=== PATIENT | male | born 1985 | race Caucasian/White ===

== ENCOUNTER 2022-09-06 01:04 | Emergency (ER) | payer MEDICAID ==
[~2022-09-06] VITALS: Ht 175.3 cm; Wt 68.2 kg
[2022-09-06] MEDS ORDERED: proparacaine 0.5% ophthalmic drops 15ml EACHEYE ONE (02:05)
[2022-09-06] MEDS ORDERED: acetaminophen 325mg tablet PO ONE (02:10)
[2022-09-06] MEDS ORDERED: erythromycin ophthalmic ointment 1gm tube RIGHTEYE ONE (02:25)
[2022-09-06] MEDS ORDERED: ERYT1OIN6 LEFTEYE (02:28)
[2022-09-06 02:36] VITALS: BP 115/67
== END 2022-09-06 02:38 | disposition home or self-care (01) ==
LOC: ER 01:05
DX: H57.11 Ocular pain, right eye (principal); H57.89 Other specified disorders of eye and adnexa; Z88.6 Allergy status to analgesic agent; Z79.899 Other long term (current) drug therapy
CPT/HCPCS: 99284

== ENCOUNTER 2023-09-21 03:38 | Emergency (ER) | payer MEDICAID ==
[~2023-09-21] VITALS: Ht 175.3 cm; Wt 78.0 kg
[2023-09-21 03:42] VITALS: BP 95/73; PULSE 65; RESP 18; TEMP 98.8; O2SAT 99
[2023-09-21 04:17] LABS: BASOPHILS % (AUTO) 0.4 % (0-1); EOSINOPHILS # (AUTO) 0.2 X10'3 (0-0.9); EOSINOPHILS % (AUTO) 2.2 % (0-6); HEMATOCRIT 43.7 % (42.0-52.0); HEMOGLOBIN 15.5 g/dl (14.0-17.9); LYMPHOCYTES # (AUTO) 1.9 X10'3 (1.1-4.8); LYMPHOCYTES % (AUTO) 22.5 % (21-51); MEAN CORPUSCULAR HEMOGLOBIN 30.7 PG (27.0-31.0); MEAN CORPUSCULAR HGB CONC 35.4 g/dL (33.0-36.5); MEAN CORPUSCULAR VOLUME 86.7 FL (78-98); MONOCYTES # (AUTO) 0.8 X10'3 (0-0.9); MONOCYTES % (AUTO) 9.6 % (2-12); NEUTROPHILS # (AUTO) 5.4 X10'3 (1.8-7.7); NEUTROPHILS % (AUTO) 65.3 % (42-75); PLATELET COUNT 305 X10'3 (140-440); RED BLOOD COUNT 5.04 X10'6 (4.70-6.10); RED CELL DISTRIBUTION WIDTH 13.1 % (11.5-14.5); WHITE BLOOD COUNT 8.3 X10'3 (4.5-11.0)
[2023-09-21] MEDS: diazepam inj 5 MG/ML inj. IV ONE (04:18)
[2023-09-21] MEDS: mag hydrox/Alum hydrox/simeth 30ml oral suspension PO ONE (04:19)
[2023-09-21] MEDS: LIDOcaine 2% Viscous 15ml cup MM ONE (04:20)
[2023-09-21] MEDS: ondansetron/PF 4mg/2ml inj IV ONE (04:24)
[2023-09-21] MEDS: pantoprazole 40 MG vial IV ONE (04:25)
[2023-09-21] MEDS: normal saline 1000ML IV soln IVB ONE (04:25)
[2023-09-21 04:42] LABS: ALANINE AMINOTRANSFERASE 27 U/L (12-78); ALBUMIN 4.2 G/DL (3.4-5.0); ALBUMIN/GLOBULIN RATIO 1.4 (1.1-1.5); ALKALINE PHOSPHATASE 66 IU/L (46-116); ANION GAP 6 (8-16); ASPARTATE AMINO TRANSFERASE 13 U/L (10-37); BILIRUBIN,TOTAL 0.8 MG/DL (0.1-1.0); BLOOD UREA NITROGEN 14 MG/DL (7-18); BUN/CREATININE RATIO 17.1 (10.0-20.0); CALCIUM 9.6 MG/DL (8.5-10.1); CHLORIDE 102 MMOL/L (99-107); CREATININE 0.82 MG/DL (0.60-1.10); GLUCOSE 109 MG/DL (70-104); POTASSIUM 3.1 MMOL/L (3.5-5.1); SODIUM 137 MMOL/L (135-145); TOTAL CARBON DIOXIDE 28.8 MMOL/L (24-32); TOTAL PROTEIN 7.3 G/DL (6.4-8.2); eCRCL 123 ML/MIN; eGFR > 90 ML/MIN
[2023-09-21 04:50] LABS: LIPASE 41 U/L (16-77); PRO BRAIN NATRIURETIC PEPTIDE < 30 PG/ML (0-125)
[2023-09-21 04:52] LABS: ETHANOL < 10 MG/DL (<10)
[2023-09-21 05:33] LABS: BILIRUBIN,URINE NEGATIVE (Neg); CLARITY,URINE SLIGHTLY CLOUDY (Clear); COLOR,URINE STRAW (Yellow); GLUCOSE, URINE NEGATIVE (Neg); KETONES,URINE NEGATIVE (Neg); LEUKOCYTE ESTERASE ,URINE NEGATIVE (Neg); NITRITES, URINE NEGATIVE (Neg); OCCULT BLOOD,URINE NEGATIVE (Neg); PROTEIN,URINE NEGATIVE (Neg); UROBILINOGEN,URINE 0.2 E.U/dL (0.2-1.0)
[2023-09-21] MEDS: potassium Cl 20 mEq SR tablet PO STA (05:34)
[2023-09-21 05:40] LABS: UA COLLECTION TYPE URINAL
[2023-09-21 05:41] LABS: SQUAMOUS EPITHELIAL CELL,UR FEW /LPF (FEW)
[2023-09-21 05:42] LABS: MUCUS STRANDS MANY /LPF (Neg)
[2023-09-21 05:45] LABS: URINE AMPHETAMINE SCREEN NEGATIVE (Neg); URINE BARBITUATE SCREEN NEGATIVE (Neg); URINE BENZODIAZEPINES SCREEN NEGATIVE (Neg); URINE CANNABINOID SCREEN NEGATIVE (Neg); URINE COCAINE SCREEN NEGATIVE (Neg); URINE METHADONE SCREEN NEGATIVE (Neg); URINE PHENCYCLIDINE SCREEN NEGATIVE (Neg)
[2023-09-21 05:50] LABS: BACTERIA,URINE FEW /HPF (Neg); RBC,URINE NONE SEEN /HPF (0-2)
[2023-09-21 05:51] LABS: RENAL CELLS, URINE FEW /HPF; WBC,URINE 0-4 /HPF (0-4)
[2023-09-21] MEDS ORDERED: PANT20TA18 PO (06:25)
[2023-09-21] MEDS ORDERED: HYDR-3686 PO (06:25)
== END 2023-09-21 06:44 | disposition home or self-care (01) ==
LOC: ER 03:39
DX: F41.0 Panic disorder [episodic paroxysmal anxiety] (principal); R10.9 Unspecified abdominal pain; R79.89 Other specified abnormal findings of blood chemistry; Z88.6 Allergy status to analgesic agent
CPT/HCPCS: 36415; 71046; 80053; 80305; 80320; 81001; 83690; 83880; 85025; 93005; 96361; 96374; 96375; 99285; C9113; J2405; J3360; J7030